=== PATIENT | female | born 1955 | race Caucasian/White ===

== ENCOUNTER 2017-09-07 08:27 | Inpatient (IN) | payer OTHER ==
[2017-08-11 09:18] VITALS: BMI 32.0
--- NOTE | 2017-08-11 09:44 | PAT Medication Instructions ---
Service Date Aug 11, 2017. Current Home Medication List Cholecalciferol (Vitamin D3), 1 TAB PO HS Mdvebqfw-Iwvqezzrauh-Fhlevmgsh (Hyaluronic Acid), 100 MG PO HS Krill Oil (Krill Oil), 1,000 MG PO HS Lactobacillus (Acidophilus), 2 TAB PO QAM Melatonin (Melatonin Maximum Strengt), 1 TAB PO HS Menaquinone-7 (Vitamin K2), 100 MCG PO HS Methylsulfonylmethane (Msm), 2,000 MG PO HS Misc Natural Products (Curcumax Pro), 750 MG PO HS Vitamin E (Vitamin E Complex), 450 UNIT PO HS [Astaxanthin], 12 MG PO HS [Liquid Magnesium], 400 MG PO HS [Magnesium L Threona], 147 MG PO HS [Methyl B12], 5,000 MCG PO QAM Medication Instructions For Your Scheduled Surgery - Hold the following medications 2 weeks prior to surgery: [Astaxanthin], 12 MG PO HS Rwtkkutc-Ozthjjzkcak-Bjtvlgtsd (Hyaluronic Acid), 100 MG PO HS Krill Oil (Krill Oil), 1,000 MG PO HS Vitamin E (Vitamin E Complex), 450 UNIT PO HS Menaquinone-7 (Vitamin K2), 100 MCG PO HS Methylsulfonylmethane (Msm), 2,000 MG PO HS Misc Natural Products (Curcumax Pro), 750 MG PO HS - Hold the following medications the morning of surgery: [Methyl B12], 5,000 MCG PO QAM Lactobacillus (Acidophilus), 2 TAB PO QAM - Take the following medications as scheduled the night before surgery: Cholecalciferol (Vitamin D3), 1 TAB PO HS [Liquid Magnesium], 400 MG PO HS [Magnesium L Threona], 147 MG PO HS Melatonin (Melatonin Maximum Strengt), 1 TAB PO HS If you have any questions please call us at [phone] or [phone] or [phone]
[2017-08-11 10:22] LABS: BASO % 0.3 %; BASO ABS # 0.01 K/uL (0-0.2); EOS % 1.3 %; EOS ABS # 0.05 K/uL (0-0.5); HEMATOCRIT 38.7 % (37-47); HEMOGLOBIN 13.8 g/dL (12.0-16.0); IG# 0.01 K/uL (0.00-0.02); LYMPH % 27.9 %; MEAN CELL VOLUME 84.7 fL (80-100); MEAN CORPUSCULAR HEMOGLOBIN 30.2 pg (25-34); MEAN CORPUSCULAR HGB CONC 35.7 g/dl (32-36); MEAN PLATELET VOLUME 10.9 fL (7.4-10.4); MONO % 7.1 %; MONO ABS # 0.28 K/uL (0.11-0.59); NEUT % 63.1 %; NEUT ABS # 2.49 K/uL (1.4-6.5); PLATELET COUNT 162 K/uL (130-400); RED CELL DISTRIBUTION WIDTH CV 13.1 % (11.5-14.5); RED CELL DISTRIBUTION WIDTH SD 39.8 fL (36.4-46.3); WHITE BLOOD COUNT 3.94 K/uL (4.8-10.8)
--- NOTE | 2017-08-11 10:31 | DIAGNOSTIC IMAGING REPORT ---
CHEST 2 VIEWS ROUTINE HISTORY: Preop. COMPARISON: None. FINDINGS: The heart is normal in size. No pleural effusions. No pneumothorax. The lungs are clear. Partially calcified bilateral breast implants. IMPRESSION: No acute process. Electronically signed by: Yusef Chambers M.D. 08/11/2017 10:30 AM Dictated Date/Time: 08/11/2017 10:27 AM
[2017-08-11 10:39] LABS: PTT PATIENT 25.3 SECONDS (21.0-31.0)
[2017-08-11 11:47] LABS: CALCIUM 9.4 mg/dl (8.5-10.1); CREATININE 0.81 mg/dl (0.60-1.20); POTASSIUM 4.3 mmol/L (3.5-5.1)
--- NOTE | 2017-09-03 17:29 | HISTORY & PHYSICAL EXAMINATION ---
DATE OF ADMISSION: 09/07/2017 CHIEF COMPLAINT: Bilateral knee pain and discomfort, right side greater than left. HISTORY OF PRESENT ILLNESS: A 61-year-old female who has got a long history of bilateral knee pain and discomfort, right side greater than left. It started over 10 years ago. She did have her right knee scoped by Dr. Karina najera in 2009. Really did not even help much back then. She has had persistent pain and discomfort. She has been through extensive conservative treatment including injections, NSAIDS and she has had it with her knee pain. The right side has been worse than the left. The more she walks, the more it hurts. It is mostly on the medial side, but can be global. The more she walks, the more it swells. She has tried multiple other supplements without relief. She would like to have her right knee replaced. PAST MEDICAL HISTORY: 1. Mild obesity with BMI 32.6. 2. Low back pain/sciatica. PAST SURGICAL HISTORY: 1. Right knee arthroscopy in 2009. 2. Foot surgery. ALLERGIES: None. CURRENT MEDICINES: 1. Magnesium. 2. Vitamin D3. 3. Astaxanthin. 4. Krill oil. 5. Melatonin. 6. MSM. 7. Hyaluronic acid. 8. Coumadin. 9. E complex. 10. K2. SOCIAL HISTORY: A 61-year-old female. Lives in [place]. She does not smoke. FAMILY HISTORY: Negative for heart disease, diabetes, or blood clots. REVIEW OF SYSTEMS: Negative for diabetes, neurologic problem, vascular problems, bleeding disorders. Denies any chest pain or shortness of breath. No history of DVT or PE. She does take multiple supplements. PHYSICAL EXAMINATION: GENERAL: Pleasant middle-aged female, looks a little younger than her stated age. HEENT: Benign. NECK: Supple. No lymphadenopathy. LUNGS: Clear to auscultation. HEART: Has a regular rate and rhythm. ABDOMEN: Soft, nontender, nondistended. EXTREMITIES: Grossly neurovascularly intact except as follows: Examination of the right knee reveals patient walks independently, but does have varus alignment to her knee. She limps a little bit on the right side and has a varus thrust with weightbearing. She is tender over the medial joint line with some bony hypertrophy. Small knee effusion. Range of motion is 5-120. No gross instability. No pain with hip motion. X-RAYS: X-ray of the right knee reviewed. Shows advanced right knee DJD. She has near complete loss of her medial joint space. She has significant osteophytes off the medial femoral condyle and medial tibial plateau as well as the intercondylar notch area. She has patellofemoral arthritis as well. ASSESSMENT: A 61-year-old female with bilateral knee pain and DJD, right side a bit worse than the left. She has failed conservative treatment and would like to have her right knee replaced. PLAN: We will take her to the operating room and do a right total knee replacement. The risks and benefits of this procedure were explained to the patient and include but not limited to DVT, PE, , infection, neurological injury, vascular injury, bleeding problem, pain, limited range of motion, stiffness, failure to relieve her symptoms, incomplete relief of symptoms, need for further surgery in future, fracture, leg length inequality, nerve palsy, need for blood transfusion, etc. The patient understands and desires to sized. Informed consent obtained. As far as discharge plans, she is hoping to be discharged to home using [facility] home health program. Does not when she is an aggressive blood thinner and was happy just to use aspirin. We did talk about holding her supplements 10 days before surgery.
[2017-09-07] VITALS (9 sets, daily range): BP systolic 107–139; BP diastolic 70–81; PULSE 55–76; TEMP 36.3–36.9; O2SAT 93–100; Ht 170.2 cm; Wt 94.4 kg
[~2017-09-07] VITALS: Ht 170.2 cm; Wt 94.4 kg
[~2017-09-07 08:27] MED LIST: ACETAMINOPHEN 500 MG TAB PO SCH; ASTAXANTHIN PO; BUPIVACAINE 0.5 % 5 MG/1 ML PF 10ML VIAL ONE; CEFAZOLIN 2000MG IV PUSH 15 ML IV SCH; CHOL20007 PO; COLL1CAP PO; FAMOTIDINE 20 MG TAB PO SCH; GABAPENTIN 600 MG PO SCH; KRIL1000 PO; LACTATED RINGER'S 1000ML 1,000 ML IV SCH; LACTATED RINGER'S 1000ML IV SCH; LACTCAP3 PO; MAGNESIUM PO; MELATAB2 PO; MENA1CAP PO; METH-736 PO; METHYL B12 PO; METOCLOPRAMIDE HCL 10 MG TAB PO SCH; MISC1TAB34 PO; ROPIVACAINE 0.5% 5 MG/ML 30 ML VIAL ONE; SCOPOLAMINE 1.5 MG TDSY TD SCH; TRANEXAMIC ACID INJ 1,000 MG x 1 Bag Preop IV SCH; VITA-23 PO; [UNRECOGNIZED DRUG - OTHER] PO
[2017-09-07] MEDS ORDERED: SODIUM CHLORIDE 0.9% PF 50 ML VIAL ONE (08:41)
[2017-09-07] MEDS ORDERED: BACITRACIN 50000 UNIT VIAL ONE (08:41)
[2017-09-07] MEDS ORDERED: BUPIVACAINE 0.25% 30 ML VIAL ONE (08:42)
--- NOTE | 2017-09-07 08:47 | History & Physical Bridge Note ---
H&P Re-Evaluation Bridge Note: I have examined the patient, reviewed the History & Physical and in the interval since the performance of the History & Physical I have noted the following changes of clinical significance: No changes noted
[2017-09-07] MEDS ORDERED: MIDAZOLAM HCL 1 MG/ML 2ML VIAL ONE (09:18)
[2017-09-07] MEDS ORDERED: PROPOFOL IV EMULSION 10 MG/ML 20 ML VIAL IV ONE ×2 (09:18→11:19)
[2017-09-07] MEDS ORDERED: FENTANYL CITRATE INJ 50 MCG/1 ML 2 ML VIAL ONE (09:18)
[2017-09-07] MEDS ORDERED: LIDOCAINE HCL 2% 2 ML VIAL (20MG/ML) ONE (09:18)
[2017-09-07] MEDS ORDERED: BUPIVACAINE LIPOSOME 1/3% 266 MG/20 ML VIAL INFIL ONE (10:12)
[2017-09-07] MEDS ORDERED: EpHEDrine SULFATE INJ 50 MG/ML AMP IV PRN (11:45)
[2017-09-07] MEDS ORDERED: ATROPINE SULFATE 0.1 MG/ML 5ML SYR IV PRN (11:45)
[2017-09-07] MEDS: BUPIVACAINE LIPOSOME 266 MG, BUPIVACAINE/EPINEPHRINE INJ 50 ML, SODIUM CHLORIDE 0.9% PF... INFIL SCH ×6 (11:54→12:17)
--- NOTE | 2017-09-07 12:27 | [facility] Post Operative Brief Note ---
Immediate Operative Summary Operative Date Sep 07, 2017. Pre-Operative Diagnosis Right Knee Degenerative Joint Disease Post-Operative Diagnosis Same as preop Procedure(s) Performed Right Total Knee Arthroplasty Surgeon Dr. Hernandez Storage Garage Attendant Surgeon(s) Vance Jackson PA-C Estimated Blood Loss 50ml Findings Consistent with Post-Op Diagnosis Fluids (cc crystalloids) 1200 cc Specimens A. Right Knee Bone and Tissue Drains None Anesthesia Type MAC Spinal Regional Complication(s) none Disposition Accompanied Pt To Recover: no Disposition: Recovery Room / PACU
[2017-09-07] MEDS ORDERED: ALUMINUM/MAGNESIUM/SIMETH (MAALOX MAX) 30 ML UDC PO PRN (12:30)
[2017-09-07] MEDS ORDERED: ONDANSETRON INJ 2 MG/ML 2 ML VIAL IV PRN (12:30)
[2017-09-07] MEDS ORDERED: DiphenhydrAMINE HCL 50 MG/ML VIAL IV PRN (12:30)
[2017-09-07] MEDS ORDERED: SILVER SULFADIAZINE 1% CR 50 GM JAR EXT PRN (12:30)
[2017-09-07] MEDS ORDERED: MAGNESIUM HYDROXIDE SUSP 30 ML UDC PO PRN (12:30)
[2017-09-07] MEDS ORDERED: ZOLPIDEM TARTRATE 5 MG TAB PO PRN (12:30)
[2017-09-07] MEDS ORDERED: METOCLOPRAMIDE HCL INJ 5 MG/ML 2 ML VIAL IV PRN (12:30)
[2017-09-07] MEDS ORDERED: BISACODYL 10 MG SUPP PR PRN (12:30)
[2017-09-07] MEDS ORDERED: MoRPHine SULFATE 2 MG/ML CARP IV PRN (12:30)
[2017-09-07] MEDS ORDERED: CEFAZOLIN IV 2,000 MG in DEXTROSE 5% 50ML 50 ML IV SCH (12:30)
--- NOTE | 2017-09-07 13:06 | DIAGNOSTIC IMAGING REPORT ---
TWO VIEWS RIGHT KNEE CLINICAL HISTORY: Postoperative examination. FINDINGS: AP and crosstable lateral portable views of the right knee are obtained. A right knee arthroplasty is in near anatomic alignment. There has been undersurface remodeling of the patella. No acute fracture is seen. There are expected postoperative changes around the knee including skin clips, soft tissue edema, and subcutaneous gas. IMPRESSION: Expected postoperative changes status post right knee arthroplasty. No acute fracture is seen. Electronically signed by: Case Denise M.D. 09/07/2017 1:05 PM Dictated Date/Time: 09/07/2017 1:05 PM
--- NOTE | 2017-09-07 13:16 | OPERATIVE REPORT ---
DATE OF OPERATION: 09/07/2017 SURGEON: Alan Hernandez MD EMPLOYEE RELATIONS ADMINISTRATOR: DYAANA Harris PREOPERATIVE DIAGNOSIS: Right knee degenerative joint disease. POSTOPERATIVE DIAGNOSIS: Same. PROCEDURE PERFORMED: Right cemented posterior stabilized total knee arthroplasty. COMPLICATIONS: None. ESTIMATED BLOOD LOSS: 50 mL. FLUID REPLACEMENT: 1200 mL crystalloid fluid replacement. TOURNIQUET TIME: 52 minutes at 300 mmHg. ANESTHESIA: Spinal with adductor canal block. DRAINS: None. SPECIMENS: Right knee sent for pathology. OPERATIVE INDICATIONS: The patient is a 61-year-old female who has had a long history of bilateral knee pain and discomfort that has become less responsive to conservative care. The right knee was bothered more than the left. X-ray showed moderate to advanced bilateral knee DJD. She would like to proceed with total knee arthroplasty. OPERATIVE FINDINGS: Operative findings revealed extensive grade 4 changes in all 3 compartments. Her operative findings were significantly more severe than her radiographic findings. She had erosions in all 3 compartments. She had a significant joint effusion with about a 10-degree flexion contracture. She had osteophytes in all 3 compartments. OPERATIVE IMPLANTS: Operative implants consisted of: 1. Biomet Vanguard size 67.5 right posterior stabilized femoral component. 2. Biomet size 75 tibial tray. 3. A 12-mm posterior stabilized polyethylene insert. 4. A 34 x 8.5 all poly patella. OPERATIVE PROCEDURE: The patient was taken to the operating room, identified and placed on the operating table in the supine position. All contact areas were appropriately padded. IV antibiotics were provided by anesthesia team. A spinal anesthetic and adductor canal block had been provided in the holding area. Jacobs catheter was placed in sterile fashion. A right thigh tourniquet was then placed and the right lower extremity was then prepped and draped in the usual sterile fashion. The right leg was elevated, exsanguinated with Esmarch and tourniquet was placed at 300 mmHg. An anterior approach to the right knee was then performed through a longitudinal incision centered over the patella. Sharp dissection carried through the subcutaneous tissues down to the level of the extensor mechanism. A medial parapatellar arthrotomy incision was made. Some subperiosteal dissection was carried out medially. The fat pad was resected from beneath the patellar tendon. Lateral patellofemoral ligament was released. Patella was everted and knee was flexed. The osteophytes were taken off the distal femur. The ACL and PCL were released from the distal femur and the tibia subluxated anteriorly. External tibial alignment jig was then placed in the anterior face of the tibia and adjusted 14 mm medially. Proximal tibial cut was made to remove about 2 mm of bone from the most deficient aspect of the medial tibial plateau. I did do a pretty significant posterior release due to her flexion contracture. The tibia was then sized to a size 75. Some osteophytes were taken off medial and posteromedially. Attention was then drawn to the femur. The distal femur was entered with a sharp drill. Intramedullary canal was suctioned. A right 5-degree valgus cutting guide was placed. Distal femoral cutting block was pinned in place. Distal femoral cut was made to take an additional 3 mm of bone off the distal femur. The femur was then sized to a size 67.5. We did downsize this slightly. The AP cutting block was pinned parallel to the epicondylar axis, which was 4 degrees of external rotation. The anterior cut, anterior chamfer, posterior cut, and posterior chamfer cuts were made. Box cutting guide was placed and adjusted slight lateral and the box cut was made. The knee was flexed. The remnants of the medial and lateral menisci were excised. The osteophytes were taken off the posterior aspect of the femur. A trial femoral component was placed. Tibial tray was pinned in maximum external rotation and drill and stem punch were used to create defect in proximal tibia for the tibial tray. The knee was then trialed and the 12-mm insert fit most appropriately. The 10 was just a little bit loose. I did not want to make her tight due to her flexion contracture, but I felt appropriate stability is with the 12 insert. Attention was then drawn to the patella. The patella was cleaned of all soft tissues. Patella thickness measured 23 mm in thickness and it was cut down to 14. It was sized to a size 34 patella. Lug holes were drilled for a 34 patella. Lateral osteophyte was removed. Patellar button was placed. Knee was taken through range of motion and patella tracked nicely with no thumbs test. Attention was then drawn toward placement of the permanent components. All trial components were removed. A bone plug was placed in the distal femur to limit blood loss. A double batch of Palacos G cement was mixed. A right size 67.5 posterior stabilized femoral component, a size 75 tibial tray, a 12-mm posterior stabilized polyethylene insert, and a 34 x 8.5 all poly patella then cemented in place. Knee was brought down to full extension until cement hardened. A final cement check was then performed. The pericapsular tissues were injected with a total of 100 mL of a combination of 20 mL of Exparel, 30 mL of normal saline, and 50 mL of 0.25% Marcaine with epinephrine. The patient did receive 1 gram of tranexamic acid. The tourniquet was then let down for final tourniquet time of 52 minutes. Hemostasis was assured with the use of electrocautery. The wound was once again irrigated. The extensor mechanism was then closed with combination of #1 PDS suture and #1 Vicryl suture in a [id number] fashion. Extensor mechanism was checked and found to be intact. Subcutaneous tissues were then closed with #2 Dexon suture in buried interrupted fashion. Skin was closed skin maru. Leg was then cleaned and dried and a sterile dressing of Xeroform, 4 x 4, sterile cast padding and Júnior bandage were applied. The patient then transferred to the recovery room in stable condition. The patient tolerated the procedure well with no complication. All needle and sponge counts were correct at the end of the operation. I attest to the content of the Intraoperative Record and any orders documented therein. Any exception s are noted below.
--- NOTE | 2017-09-07 13:39 | Anesthesiology Progress Note ---
Anesthesia Post Op Note Date & Time Sep 07, 2017 at 13:39 Vital Signs Pain Intensity: 0 Vital Signs Past 12 Hours Date Time Temp Pulse Resp B/P (MAP) Pulse Ox O2 Delivery O2 Flow Rate FiO2 09/07/17 13:35 60 14 119/75 98 Nasal Cannula 2 09/07/17 13:20 56 14 122/74 98 Nasal Cannula 2 09/07/17 13:10 36.0 53 16 124/78 98 Nasal Cannula 2 09/07/17 13:00 63 17 120/75 98 Nasal Cannula 2 09/07/17 12:50 54 16 132/76 100 Oxymask 10 09/07/17 12:40 56 15 117/65 98 Oxymask 10 09/07/17 12:31 36.1 62 14 118/61 98 Oxymask 10 09/07/17 09:00 36.3 76 18 131/76 95 Room Air Notes Mental Status: alert / awake / arousable, participated in evaluation Pt Amnestic to Procedure: Yes Nausea / Vomiting: adequately controlled Pain: adequately controlled Airway Patency, RR, SpO2: stable & adequate BP & HR: stable & adequate Hydration State: stable & adequate Anesthetic Complications: no major complications apparent
[2017-09-07] MEDS: CHECK SCOPOLAMINE PATCH PLACEMENT SCH (16:04)
[2017-09-07] MEDS: D5W AND 1/2NSS + 20MEQ KCL 1,000 ML IV SCH (16:05)
[2017-09-07] MEDS: FERROUS GLUCONATE 324 MG TAB PO SCH (16:05)
[2017-09-07] MEDS: KETOROLAC TROMETHAMINE 30 MG/ML VIAL IV. SCH (18:24)
[2017-09-07] MEDS: OXYCODONE HCL IR 5 MG TAB (IMMEDIATE RELEASE) PO PRN (18:24)
[2017-09-07] MEDS: CEFAZOLIN IV 2,000 MG in SYRINGE 0 ML IV SCH (18:24)
[2017-09-07] MEDS ORDERED: TRANEXAMIC ACID INJ 1,000 MG in SODIUM CHLORIDE 0.9% 100ML 100 ML IV SCH (20:00)
[2017-09-07] MEDS ORDERED: [UNRECOGNIZED DRUG - OTHER] PO SCH (21:00)
[2017-09-07] MEDS ORDERED: METHYLSULFONYLMETHANE PO SCH (21:00)
[2017-09-07] MEDS ORDERED: NON-FORMULARY MEDICATION (Melatonin (Melatonin Maximum Strengt) 1 TAB) PO SCH (21:00)
[2017-09-07] MEDS ORDERED: NATURAL PRODUCTS PO SCH (21:00)
[2017-09-07] MEDS ORDERED: MAGNESIUM 400 MG PO SCH (21:00)
[2017-09-07] MEDS ORDERED: MAGNESIUM PO SCH (21:00)
[2017-09-07] MEDS ORDERED: [UNRECOGNIZED DRUG - OTHER] PO SCH (21:00)
[2017-09-07] MEDS ORDERED: ASTAXANTHIN 12 MG PO SCH (21:00)
[2017-09-07] MEDS: TAPENTADOL ER 50 MG TABCR PO SCH (21:01)
[2017-09-07] MEDS: ASPIRIN 81 MG ECTAB PO SCH (21:01)
[2017-09-07] MEDS: SENNA 8.6 MG TAB PO SCH (21:01)
[2017-09-07] MEDS: CHOLECALCIFEROL 1000 INTER.UNIT TAB PO SCH (21:02)
[2017-09-07] MEDS: DOCUSATE SODIUM 100 MG CAP PO SCH (21:02)
[2017-09-07] MEDS: ACETAMINOPHEN 500 MG TAB PO SCH (21:03)
[2017-09-08] MEDS: CHECK SCOPOLAMINE PATCH PLACEMENT SCH ×4 (00:02→23:32)
[2017-09-08] MEDS: KETOROLAC TROMETHAMINE 30 MG/ML VIAL IV. SCH ×5 (00:04→23:32)
[2017-09-08] MEDS: D5W AND 1/2NSS + 20MEQ KCL 1,000 ML IV SCH ×2 (01:59→12:27)
[2017-09-08] MEDS: CEFAZOLIN IV 2,000 MG in SYRINGE 0 ML IV SCH (01:59)
[2017-09-08 03:29] VITALS: BP 108/72; PULSE 60; TEMP 36.5; O2SAT 94
[2017-09-08] MEDS: OXYCODONE HCL IR 5 MG TAB (IMMEDIATE RELEASE) PO PRN ×3 (04:20→19:14)
[2017-09-08] MEDS: ACETAMINOPHEN 500 MG TAB PO SCH ×3 (05:55→21:09)
[2017-09-08 06:19] LABS: HEMATOCRIT 32.6 % (37-47); HEMOGLOBIN 11.5 g/dL (12.0-16.0); MEAN CELL VOLUME 86.7 fL (80-100); MEAN CORPUSCULAR HEMOGLOBIN 30.6 pg (25-34); MEAN CORPUSCULAR HGB CONC 35.3 g/dl (32-36); MEAN PLATELET VOLUME 11.3 fL (7.4-10.4); PLATELET COUNT 133 K/uL (130-400); RED CELL DISTRIBUTION WIDTH CV 13.1 % (11.5-14.5); WHITE BLOOD COUNT 4.69 K/uL (4.8-10.8)
[2017-09-08 06:50] LABS: CALCIUM 8.4 mg/dl (8.5-10.1); CREATININE 0.68 mg/dl (0.60-1.20); POTASSIUM 3.6 mmol/L (3.5-5.1)
[2017-09-08 08:10] VITALS: BP 130/82; PULSE 78; TEMP 36.7; O2SAT 96
[2017-09-08 08:25] VITALS: O2SAT 96
[2017-09-08] MEDS: TAPENTADOL ER 50 MG TABCR PO SCH ×2 (08:46→21:08)
[2017-09-08] MEDS: PANTOprazole SOD 40 MG TAB PO SCH (08:47)
[2017-09-08] MEDS: MULTIVITAMIN TAB PO SCH (08:47)
[2017-09-08] MEDS: ASPIRIN 81 MG ECTAB PO SCH ×2 (08:47→21:10)
[2017-09-08] MEDS: DOCUSATE SODIUM 100 MG CAP PO SCH ×2 (08:47→21:10)
[2017-09-08] MEDS: FERROUS GLUCONATE 324 MG TAB PO SCH ×3 (08:47→18:04)
[2017-09-08] MEDS ORDERED: METHYL B12 PO SCH (09:00)
[2017-09-08] MEDS ORDERED: LACTOBACILLUS PO SCH (09:00)
--- NOTE | 2017-09-08 11:48 | Orthopedic Progress Note ---
Orthopedic Progress Note Date of Service Sep 08, 2017. Subjective Additional Notes: 61 Y/O female POD #1 R TKA. Pretty painful at times, 8/10 at times. No chest pain or sob. Objective N/V intact, dressing C/D/I, A&O x3, toes mobile Date Time Temp Pulse Resp B/P (MAP) Pulse Ox O2 Delivery O2 Flow Rate FiO2 09/08/17 08:25 96 Room Air 09/08/17 08:10 36.7 78 16 130/82 (98) 96 Room Air 09/08/17 08:00 Room Air 09/08/17 03:29 36.5 60 14 108/72 (84) 94 Room Air 09/08/17 00:00 Room Air 09/07/17 23:20 36.9 63 16 107/70 (82) 93 Room Air 09/07/17 19:59 36.9 63 16 121/77 (92) 97 Room Air 09/07/17 17:06 36.5 60 16 130/74 (92) 99 Room Air 09/07/17 16:00 98 Nasal Cannula 2.0 09/07/17 16:00 36.5 58 15 139/81 (100) 98 Nasal Cannula 2.0 09/07/17 15:23 36.6 71 16 113/74 (87) 99 Nasal Cannula 2.0 09/07/17 14:27 36.6 58 16 115/71 (86) 100 Nasal Cannula 2.0 09/07/17 14:08 99 Nasal Cannula 2.0 09/07/17 14:03 98 Nasal Cannula 2.0 09/07/17 13:58 36.5 55 15 121/79 (93) 99 Nasal Cannula 2.0 09/07/17 13:45 59 14 126/71 97 Nasal Cannula 2 09/07/17 13:35 60 14 119/75 98 Nasal Cannula 2 09/07/17 13:20 56 14 122/74 98 Nasal Cannula 2 09/07/17 13:10 36.0 53 16 124/78 98 Nasal Cannula 2 09/07/17 13:00 63 17 120/75 98 Nasal Cannula 2 09/07/17 12:50 54 16 132/76 100 Oxymask 10 09/07/17 12:40 56 15 117/65 98 Oxymask 10 09/07/17 12:31 36.1 62 14 118/61 98 Oxymask 10 Laboratory Results 24 Hours: Test 09/08/17 05:43 Hematocrit 32.6 % Hemoglobin 11.5 g/dL Assessment & Plan Assessment: POD #1 Right TKA Discharge Planning Discharge Planning: home with home health Pain Management: other (conitnue current pain management. Has been pretty painful at times but this should improve some) DVT Prophylaxis: TEDs, SCDs, ASA Therapy: Physical Therapy, Occupational Therapy Discharge Planning Notes: Plan for discharge home with home health possibly tomorrow.
[2017-09-08 12:31] VITALS: BP 110/78; PULSE 68; TEMP 36.7; O2SAT 98
[2017-09-08 14:57] VITALS: BP 112/69; PULSE 68; TEMP 36.9; O2SAT 95
[2017-09-08] MEDS: SENNA 8.6 MG TAB PO SCH (21:45)
[2017-09-08] MEDS: CHOLECALCIFEROL 1000 INTER.UNIT TAB PO SCH (21:45)
[2017-09-08] MEDS ORDERED: RXC5 PO (22:14)
[2017-09-08] MEDS ORDERED: ACET-24 PO (22:14)
[2017-09-08] MEDS ORDERED: ASPEC81 PO (22:14)
--- NOTE | 2017-09-08 22:17 | Discharge Instructions ---
Discharge Instructions Date of Service Sep 08, 2017. Admission Reason for Admission: Right Knee Degenerative Joint Disease Discharge Discharge Diagnosis / Problem: Right Knee Replacement Discharge Goals Goal(s): Decrease discomfort, Improve function, Increase independence, Improve disease control, Therapeutic intervention Activity Recommendations Activity Limitations: per Instructions/Follow-up section Weightbearing Status: Right weightbearing . Instructions / Follow-Up Instructions / Follow-Up ACTIVITY RECOMMENDATIONS: Physical Therapy: * You will go to physical therapy three times each week for four to six weeks after your surgery in order to regain your knee range of motion and to retrain your knee to work properly. * It is just as important to make sure you are getting your knee perfectly straight as it is to regain your knee bend. * Taking a pain pill an hour before therapy can help you have a more productive and comfortable therapy session. Home Exercise: * You were shown a series of exercises (heel props, heel slides, etc.) in the hospital. Do these exercises three to four times each day including the exercises you were shown in physical therapy. Walking: * Get up and walk several times each day. For the first four weeks, try not to stand or walk for more than one hour at a time. If you do stand or walk for more than one hour, you will not hurt anything, but your knee and leg will likely swell. * As you feel comfortable, you may change from the walker or crutches to a cane and then to independent walking. MEDICATIONS: New Medicine: * You will likely be taking one or more of these medications: 1. Oxycodone - A quick and shorter-acting pain medication. Take one to two tablets every four to six hours to lessen your pain. 2. Aspirin - Thins your blood to lessen the chance of forming a blood clot. * The most common side effects of pain medicine and iron are nausea and constipation. If nausea or constipation is too much of a problem or if you have any questions about your new medicines or doses, call [facility] at . We will try to help you manage these issues. VERY IMPORTANT TO READ AND REVIEW" Pain: * The immediate post-operative period after knee replacement surgery is often quite painful. * You are given a prescription for pain medicine. You should take it, as directed, when you need it, especially before physical therapy and before going to bed. Pain that interferes with sleep is very common and can last several months. * You will likely need pain medicine for the first four to six weeks. It will not stop all of the pain. The pain will lessen and as you feel better, you may change to milder pain medicine such as Tylenol. * The most common side effects of pain medicine are nausea and constipation, so don't take more than you need. SPECIAL CARE INSTRUCTIONS: TEDs/Elastic Stockings: * The white elastic stockings help limit swelling and prevent blood clots from forming in your legs. The more you wear them, the more they work. * Wear them for six weeks after knee replacement surgery and four weeks after partial knee replacement. Prevention of Infection: * Take antibiotics one hour before any dental cleaning, dental work, urological procedure, gastrointestinal procedure or any invasive surgery in order to prevent your new joint from getting infected. * You may get the antibiotics from the doctor performing the procedure or you may call our office at before and we will call in a prescription to the pharmacy of your choice. Things to Watch For: * Drainage from the incision site that occurs more than one week after your surgery. * Severely increased knee/leg pain or swelling. * Increased redness at the incision site. * Fever above 102 degrees Fahrenheit. * Unusual chest pain or shortness of breath. * Unusual pain or burning with urination. Call [facility] at with any of the above problems or if you have any questions about your medicines or recovery. FOLLOW UP VISIT: Make an appointment to see your doctor for approximately two weeks after surgery for a progress check and staple removal by calling the office at . Current Hospital Diet Patient's current hospital diet: Regular Diet Discharge Diet Recommended Diet: Regular Diet Procedures Procedures Performed: Right Total Knee Arthroplasty Pending Studies Studies pending at discharge: no Medical Emergencies . Who to Call and When: Medical Emergencies: If at any time you feel your situation is an emergency, please call [phone] immediately. . Non-Emergent Contact Non-Emergency issues call your: Surgeon . "Provider Documentation" section prepared by Alan Hernandez. .
[2017-09-08 23:07] VITALS: BP 107/69; PULSE 72; TEMP 36.9; O2SAT 96
[2017-09-09] MEDS: ACETAMINOPHEN 500 MG TAB PO SCH (05:43)
[2017-09-09] MEDS: KETOROLAC TROMETHAMINE 30 MG/ML VIAL IV. SCH (05:43)
[2017-09-09 06:08] VITALS: BP 129/79; PULSE 79; TEMP 36.8; O2SAT 98
[2017-09-09] MEDS: OXYCODONE HCL IR 5 MG TAB (IMMEDIATE RELEASE) PO PRN ×2 (06:45→10:41)
--- NOTE | 2017-09-09 07:21 | PROGRESS NOTE ---
DATE: 09/09/2017 SUBJECTIVE: A 61-year-old white female postop day 2 from right knee replacement. She is doing much better this morning. Pain is improved. Denies any chest pain or shortness of breath. Not feeling dizzy or lightheaded. OBJECTIVE: VITAL SIGNS: Temperature is 36.8. Vital signs stable. GENERAL: Reveals a pleasant, middle-aged female. She is sitting up in bed and looks quite comfortable. EXTREMITIES: Examination of the right leg reveals the dressing to be clean, dry and intact. Fairly mild swelling. Calf is soft and supple. She is neurologically intact. ASSESSMENT: A 61-year-old female postop day 2 from right knee replacement, doing well. Pain is improved today. Just doing clinically better. PLAN: 1. DVT prophylaxis including thigh-high TEDs, SCDs, and aspirin twice a day. 2. PT, OT. Weight bear as tolerated. Right total knee protocol. 3. Pain control, doing well with current pain regimen. 4. Disposition: Plan to discharge to home with some home health later today.
[2017-09-09 07:39] VITALS: BP 119/79; PULSE 83; TEMP 36.7; O2SAT 94
[2017-09-09] MEDS: TAPENTADOL ER 50 MG TABCR PO SCH (07:44)
[2017-09-09] MEDS: FERROUS GLUCONATE 324 MG TAB PO SCH (07:44)
[2017-09-09] MEDS: MULTIVITAMIN TAB PO SCH (07:44)
[2017-09-09] MEDS: PANTOprazole SOD 40 MG TAB PO SCH (07:45)
[2017-09-09] MEDS: CHECK SCOPOLAMINE PATCH PLACEMENT SCH (07:47)
[2017-09-09] MEDS: ASPIRIN 81 MG ECTAB PO SCH (09:31)
[2017-09-09] MEDS: DOCUSATE SODIUM 100 MG CAP PO SCH (09:31)
[2017-09-09 10:26] VITALS: BP 129/79; PULSE 79; TEMP 36.8; O2SAT 98
== END 2017-09-09 10:53 | disposition home health service (06) | DRG 470 ==
LOC: C.ACU 08:27 → C.3E 09:10 → ENRESERV 13:31
PROVIDERS: ADMIT Orthopaedic Surgery Sports Medicine; ATTEND Orthopaedic Surgery Sports Medicine
PROC: 0SRC0J9 Replacement of Right Knee Joint with Synthetic Substitute, Cemented, Open Approach (ICD-10-PCS; principal; 2017-09-07 11:00)
DX: M17.0 Bilateral primary osteoarthritis of knee (principal); M21.161 Varus deformity, not elsewhere classified, right knee; M24.561 Contracture, right knee; M25.461 Effusion, right knee; E66.9 Obesity, unspecified; Z68.32 Body mass index [BMI] 32.0-32.9, adult; Z79.899 Other long term (current) drug therapy